=== PATIENT | female | born 1975 ===

== ENCOUNTER 2022-06-04 12:00 | Inpatient (IN) | payer OTHER ==
[~2022-06-04] VITALS: Ht 160 cm; Wt 122.5 kg
[2022-06-26] MEDS ORDERED: VASOTEC10 MG PO (08:30)
[2022-06-28] MEDS ORDERED: MEDROXYPRO150 MG/11 (14:00)
== END 2022-06-28 18:54 | disposition home or self-care (01) | DRG 337 ==
LOC: SURH 06-27 05:46 → O/R 06-27 05:46 → SURG 06-27 12:15 → SURH 06-27 14:52
PROVIDERS: Obstetrics & Gynecology Gynecology; ADMIT Surgery; ATTEND Surgery
PROC: 0DN84ZZ Release Small Intestine, Percutaneous Endoscopic Approach (ICD-10-PCS; 2022-06-27)
PROC: 0DJD8ZZ Inspection of Lower Intestinal Tract, Via Natural or Artificial Opening Endoscopic (ICD-10-PCS; 2022-06-27)
PROC: 0DNN4ZZ Release Sigmoid Colon, Percutaneous Endoscopic Approach (ICD-10-PCS; 2022-06-27)
PROC: 0UT94ZZ Resection of Uterus, Percutaneous Endoscopic Approach (ICD-10-PCS; 2022-06-27)
PROC: 0UT04ZZ Resection of Right Ovary, Percutaneous Endoscopic Approach (ICD-10-PCS; 2022-06-27)
PROC: 0UT54ZZ Resection of Right Fallopian Tube, Percutaneous Endoscopic Approach (ICD-10-PCS; 2022-06-27)
PROC: 4A12X4Z Monitoring of Cardiac Electrical Activity, External Approach (ICD-10-PCS; 2022-06-27)
PROC: 0DNW4ZZ Release Peritoneum, Percutaneous Endoscopic Approach (ICD-10-PCS; principal; 2022-06-27 14:15)
PROC: 0DNP4ZZ Release Rectum, Percutaneous Endoscopic Approach (ICD-10-PCS; 2022-06-27 14:15)
DX: N80.5 Endometriosis of intestine (principal); N80.0 Endometriosis of uterus; K66.0 Peritoneal adhesions (postprocedural) (postinfection); D25.1 Intramural leiomyoma of uterus; N72 Inflammatory disease of cervix uteri; N83.01 Follicular cyst of right ovary; N83.291 Other ovarian cyst, right side; Z20.822 Contact with and (suspected) exposure to COVID-19